=== PATIENT | female | born 1965 | race African-American/Black ===

== ENCOUNTER 2019-04-21 11:01 | Inpatient (IN) | payer MEDICARE, MEDICAID ==
[~2019-04-21] VITALS: Ht 170.2 cm; Wt 77.6 kg
[~2019-04-21 11:01] MED LIST: ASCO-339 PO; ASPI-1393 PO; CARV6.2548 PO; CELL2 PO; DIGO125T82 PO; ENAL10TA71 PO; FURO-151 PO; LISI-604; MAGN400C PO; NIFE30TA8 PO; OMEP20CA5 PO; PRED5TAB48 PO; PROG1 PO; RIVA20TA PO; SPIR25TA6 PO; VITA400T9 PO
[2019-04-21] MEDS ORDERED: ACYC400T5 PO (11:15)
[2019-04-21] MEDS ORDERED: SIRO1TAB5 MT (11:15)
[2019-04-21] MEDS ORDERED: ROSU5TAB PO (11:15)
[2019-04-21] MEDS ORDERED: LEVO88TA7 PO (11:15)
[2019-04-21] MEDS ORDERED: IPRATROPIUM BROMIDE (0.02%) 0.5MG/2.5ML NEB HHN STA (11:36)
[2019-04-21] MEDS ORDERED: ALBUTEROL (0.083%) 2.5MG/3ML NEB HHN STA (11:36)
[2019-04-21] MEDS ORDERED: NITROGLYCERIN OINT 1GM/INCH UDPKT TD ONE (11:45)
[2019-04-21 12:08] LABS: BASOPHILS % 1.3 % (0.0-2.0); EOSINOPHILS % 2.2 % (0.0-5.0); HEMATOCRIT. 35.1 % (36.0-48.0); HEMOGLOBIN. 11.5 g/dL (12.0-16.0); LYMPHOCYTES % 29.8 % (20.0-50.0); MEAN CORPUSCULAR HEMOGLOBIN 26.4 pg (28.0-32.0); MEAN CORPUSCULAR VOLUME 80.9 fL (81.0-99.0); MEAN PLATELET VOLUME 8.3 fl (7.4-10.4); NEUTROPHILS % 55.7 % (40.0-76.0); PLATELET 194 x1000/uL (130-400); RED BLOOD CELL COUNT 4.34 mill/uL (4.2-5.4); RED CELL DISTRIBUTION WIDTH 15.2 % (11.6-14.6)
[2019-04-21 12:19] LABS: INR 0.9; PROTHROMBIN TIME 9.5 sec (9.6-11.0)
[2019-04-21 12:22] LABS: CHLORIDE 108 mEq/L (98-107)
[2019-04-21] MEDS ORDERED: FUROSEMIDE 20MG/2ML VIAL IVP ONE (12:45)
[2019-04-21] MEDS ORDERED: LORAZEPAM 0.5MG TABLET PO PRN (13:30)
[2019-04-21] MEDS ORDERED: IPRATROPIUM/ALBUTEROL 0.5-3(2.5)MG/3ML NEB HHN PRN (13:30)
[2019-04-21] MEDS ORDERED: DIPHENHYDRAMINE 50MG/ML VIAL IV PRN (13:30)
[2019-04-21] MEDS ORDERED: ACETAMINOPHEN 325MG TABLET PO PRN (13:30)
[2019-04-21] MEDS ORDERED: MAGNESIUM/ALUMINUM HYDROXIDE/SIMETHICONE 30ML UDC PO PRN (13:30)
[2019-04-21] MEDS ORDERED: CLONIDINE 0.1MG TABLET PO PRN (13:30)
[2019-04-21] MEDS ORDERED: ONDANSETRON HCL 4MG/2ML INJ IV PRN (13:30)
[2019-04-21] MEDS ORDERED: HYDROCODONE/ACETAMINOPHEN 5/325MG TABLET PO PRN (13:30)
[2019-04-21] MEDS ORDERED: DOCUSATE SODIUM 100MG CAPSULE PO PRN (13:30)
[2019-04-21 14:51] LABS: CLARITY URINE CLEAR (CLEAR); COLOR URINE YELLOW (YELLOW); KETONES URINE NEGATIVE (NEGATIVE); LEUKOCYTE ESTERASE URINE TRACE (NEGATIVE); NITRITE URINE NEGATIVE (NEGATIVE); OCCULT BLOOD URINE NEGATIVE (NEGATIVE); PH URINE 6.5 (4.5-8.0); PROTEIN URINE NEGATIVE (NEGATIVE); SPECIFIC GRAVITY URINE 1.008 (1.005-1.030); UROBILINOGEN URINE 0.2 E.U./dL (0.2-1.0)
[2019-04-21 14:53] LABS: T4 FREE 1.14 ng/dL (0.76-1.46)
[2019-04-21 15:05] LABS: *AMPHETAMINES SCREEN URINE NEGATIVE (NEGATIVE); *BARBITURATES SCREEN URINE NEGATIVE (NEGATIVE); *BENZODIAZEPINES SCREEN URINE NEGATIVE (NEGATIVE); *COCAINE SCREEN URINE NEGATIVE (NEGATIVE)
[2019-04-21 15:07] LABS: CANNABINOID URINE SCREEN NEGATIVE (NEGATIVE); METHADONE URINE SCREEN NEGATIVE (NEGATIVE); OPIATES URINE SCREEN NEGATIVE (NEGATIVE); PHENCYCLIDINE URINE SCREEN NEGATIVE (NEGATIVE)
[2019-04-21 15:46] VITALS: BP 146/66
[2019-04-21 16:00] VITALS: BP 146/66
[2019-04-21] MEDS: GUAIFENESIN 200MG/10ML SUGAR FREE UDC PO PRN (17:43)
[2019-04-21 20:00] VITALS: BP 130/87
[2019-04-21] MEDS: LISINOPRIL 10MG TABLET PO SCH (20:08)
[2019-04-21 20:41] VITALS: BP 130/87
[2019-04-21 22:00] VITALS: BP 128/84
[2019-04-22] VITALS (11 sets, daily range): BP systolic 99–124; BP diastolic 66–87
[2019-04-22] MEDS: NICOTINE 14MG PATCH TD SCH ×2 (00:43→21:43)
[2019-04-22] MEDS: GUAIFENESIN 200MG/10ML SUGAR FREE UDC PO PRN (00:44)
[2019-04-22] MEDS: TRAZODONE HCL 50MG TABLET PO SCH ×2 (02:38→21:45)
[2019-04-22] MEDS: CLINDAMYCIN HCL 150MG CAPSULE PO SCH ×2 (06:36→13:17)
[2019-04-22] MEDS: OMEPRAZOLE 20MG CAPSULE EXTENDED RELEASE PO SCH (07:12)
[2019-04-22 07:55] LABS: BASOPHILS % 0.6 % (0.0-2.0); EOSINOPHILS % 2.5 % (0.0-5.0); HEMATOCRIT. 33.5 % (36.0-48.0); LYMPHOCYTES % 43.5 % (20.0-50.0); MEAN CORPUSCULAR HEMOGLOBIN 26.6 pg (28.0-32.0); MEAN CORPUSCULAR VOLUME 81.1 fL (81.0-99.0); MEAN PLATELET VOLUME 8.8 fl (7.4-10.4); MONOCYTES % 11.2 % (2.0-8.0); NEUTROPHILS % 42.2 % (40.0-76.0); PLATELET 196 x1000/uL (130-400); RED BLOOD CELL COUNT 4.13 mill/uL (4.2-5.4); RED CELL DISTRIBUTION WIDTH 14.8 % (11.6-14.6)
[2019-04-22 08:22] LABS: CHLORIDE 109 mEq/L (98-107)
[2019-04-22 08:50] LABS: PHOSPHORUS 3.4 mg/dL (2.5-4.9)
[2019-04-22 08:51] LABS: LDL CHOLESTEROL 53 mg/dL (5-100)
[2019-04-22 08:52] LABS: T4 FREE 0.93 ng/dL (0.76-1.46)
[2019-04-22 08:53] LABS: HDL CHOLESTEROL 83 mg/dL (40-59)
[2019-04-22] MEDS: LISINOPRIL 10MG TABLET PO SCH ×2 (10:13→21:00)
[2019-04-22] MEDS: ASPIRIN 81MG EC TABLET PO SCH (10:13)
[2019-04-22] MEDS: NIFEDIPINE XL 30MG TAB PO SCH (10:14)
[2019-04-22] MEDS: PREDNISONE 5MG TABLET PO SCH (13:17)
[2019-04-22] MEDS: TACROLIMUS 1MG CAPSULE PO SCH (13:19)
[2019-04-22] MEDS: SIROLIMUS 1 MG PO SCH (15:15)
[2019-04-22] MEDS: ACYCLOVIR 400 MG TABLET PO SCH (22:00)
[2019-04-23] VITALS: BP 95/60
[2019-04-23 04:00] VITALS: BP 128/75
[2019-04-23 08:00] VITALS: BP 114/70
[2019-04-23 08:21] LABS: BASOPHILS % 0.8 % (0.0-2.0); EOSINOPHILS % 2.3 % (0.0-5.0); HEMOGLOBIN. 11.3 g/dL (12.0-16.0); MEAN CORPUSCULAR HEMOGLOBIN 26.2 pg (28.0-32.0); MEAN CORPUSCULAR VOLUME 81.4 fL (81.0-99.0); MEAN PLATELET VOLUME 8.6 fl (7.4-10.4); MONOCYTES % 9.6 % (2.0-8.0); NEUTROPHILS % 46.3 % (40.0-76.0); PLATELET 203 x1000/uL (130-400); RED CELL DISTRIBUTION WIDTH 14.9 % (11.6-14.6)
[2019-04-23] MEDS: OMEPRAZOLE 20MG CAPSULE EXTENDED RELEASE PO SCH (08:23)
[2019-04-23] MEDS: ASPIRIN 81MG EC TABLET PO SCH (08:23)
[2019-04-23] MEDS: PREDNISONE 5MG TABLET PO SCH (08:23)
[2019-04-23] MEDS: ACYCLOVIR 400 MG TABLET PO SCH (08:24)
[2019-04-23] MEDS: NIFEDIPINE XL 30MG TAB PO SCH (08:24)
[2019-04-23] MEDS: LISINOPRIL 10MG TABLET PO SCH (08:24)
[2019-04-23] MEDS: TACROLIMUS 1MG CAPSULE PO SCH (08:25)
[2019-04-23] MEDS: SIROLIMUS 1 MG PO SCH (08:28)
[2019-04-23 09:43] LABS: CHLORIDE 110 mEq/L (98-107)
[2019-04-23 11:06] VITALS: BP 114/70
== END 2019-04-23 11:50 | disposition home or self-care (01) | DRG 292 ==
LOC: ER 11:01 → 6WST 12:42 → EDBEDREQ 12:43 → ENRESERV 14:31
PROVIDERS: ADMIT Family Medicine Adult Medicine; ATTEND Family Medicine Adult Medicine
DX: I11.0 Hypertensive heart disease with heart failure (principal); Z94.1 Heart transplant status; R07.89 Other chest pain; I50.43 Acute on chronic combined systolic (congestive) and diastolic (congestive) heart failure; I42.0 Dilated cardiomyopathy; E03.9 Hypothyroidism, unspecified; E78.00 Pure hypercholesterolemia, unspecified; F17.210 Nicotine dependence, cigarettes, uncomplicated; F32.9 Major depressive disorder, single episode, unspecified; G62.9 Polyneuropathy, unspecified; G47.00 Insomnia, unspecified; J40 Bronchitis, not specified as acute or chronic; M81.0 Age-related osteoporosis without current pathological fracture; R74.0 Nonspecific elevation of levels of transaminase and lactic acid dehydrogenase [LDH]; I73.9 Peripheral vascular disease, unspecified; I27.20 Pulmonary hypertension, unspecified; I48.91 Unspecified atrial fibrillation; K21.9 Gastro-esophageal reflux disease without esophagitis; G89.29 Other chronic pain; M54.9 Dorsalgia, unspecified; D64.9 Anemia, unspecified; Z86.61 Personal history of infections of the central nervous system; Z82.49 Family history of ischemic heart disease and other diseases of the circulatory system; Z85.41 Personal history of malignant neoplasm of cervix uteri; Z90.710 Acquired absence of both cervix and uterus; Z71.6 Tobacco abuse counseling; Z95.810 Presence of automatic (implantable) cardiac defibrillator
CPT/HCPCS: 36415; 71045; 80048; 80061; 80305; 81003; 83036; 83605; 83735; 83880; 84100; 84439; 84443; 84481; 84484; 85379; 87804; 93005; 93306; 93923; 93970; 94640; 99285; J1940; J7507; J7512; J7611